=== PATIENT | female | born 1995 | race Caucasian/White ===

== ENCOUNTER 2018-07-09 06:19 | Emergency (ER) | payer OTHER ==
[~2018-07-09] VITALS: Ht 160 cm; Wt 57.9 kg
--- NOTE | 2018-07-09 06:39 | NUR ---
FIRST CONTACT WITH PT. PT C/O RASH ON ALL OVER THE BODY AFTER EATING SHELLFISH SOUP. PT WENT TO URGENT CARE ON SUNDAY AND WAS GIVEN A DOSE OF STEROIDS, BUT IT'S GETTING WORSE TODAY. NO SOB OR THROAT INVOLVEMENT. PT'S AOX4. RESPS EVEN AND UNLABORED. BP/SPO2 MONITORS IN PLACE. CALL LIGHT WITHIN REACH.
--- NOTE | 2018-07-09 06:52 | NUR ---
REPORT GIVEN TO NATALIA KIMBALL.
--- NOTE | 2018-07-09 07:44 | NUR ---
Discharge instructions discussed with patient, verbalizes understanding, prescription provided with instruction for use. Patient educated on when to return to emergency department.
[2018-07-09 07:45] VITALS: BP 107/47
== END 2018-07-09 08:00 | disposition home or self-care (01) ==
LOC: ED 07:36
DX: L50.0 Allergic urticaria (principal)
CPT/HCPCS: 99283